=== PATIENT | female | born 1990 | race Caucasian/White ===

== ENCOUNTER 2021-03-11 15:31 | Emergency (ER) | payer OTHER, SELFPAY ==
[2021-03-11 15:53] VITALS: BP 131/77; PULSE 73; RESP 16; TEMP 37.1; O2SAT 100
[2021-03-11] MEDS: TETANUS,DIPHTHERIA,AC PERTUSSIS ADULT (0.5 ML) BOOSTRIX IM (16:09)
--- NOTE | 2021-03-11 16:14 | ED.ANIMALBIT ---
HPI - Animal Bite General Chief Complaint: Animal Bite Stated Complaint: Animal Bite Finger Lt Hand Time Seen by Provider: 03/11/21 15:59 Source: patient and RN notes reviewed Mode of arrival: ambulatory Limitations: no limitations History of Present Illness HPI narrative: Patient presents today complaining of a squirrel bite to her left second finger that was sustained at 830 this morning. 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 She cleaned the bite with peroxide directly afterwards and applied a dressing. States the injury stings , but denies any real pain. She denies numbness or tingling. Denies decreased range of motion. She is not up-to-date on her tetanus vaccine. MD complaint: animal bite Related Data Allergies Allergy/AdvReac Type Severity Reaction Status Date / Time tomato Allergy Unknown Unknown Verified 04/19/19 11:42 Review of Systems Review of Systems: CONSTITUTIONAL: Denies body aches, fever, chills, or sweats. EYES: Denies visual changes, redness, or discharge. ENT: Denies rhinorrhea, congestion, sore throat, or otalgia. CARDIOVASCULAR: Denies chest pain, palpitations, or edema. RESPIRATORY: Denies cough or dyspnea. GASTROINTESTINAL: Denies abdominal pain, nausea, vomiting, or diarrhea. GENITOURINARY: Denies dysuria or hematuria. SKIN: Denies rash, itching. + Animal bite MUSCULOSKELETAL: Denies back pain, joint pain, or myalgia. NEUROLOGIC: Denies headache, numbness, tingling, or weakness. PSYCH: Denies depression or anxiety. [facility] Past Medical History Medical History Asthma Hyperglycemia Surgical History Surgical History History of breast augmentation 12/2017 Family History Family History Mother Family history of chronic obstructive pulmonary disease Grandparent Heart disease Social History Social History Smoking status: Never smoker Second hand tobacco smoke exposure: No Alcohol intake: current Alcohol use details: 2 glasses of wine consumed occasionally Substance use: never Substance use type: does not use Comments At time of signature, I have reviewed and agree with nursing past medical, surgical, social and family history unless otherwise noted. Please see nursing chart for further information. There is no relevant family history pertinent to the presenting complaint Exam Narrative: GENERAL: Well-appearing, well-nourished, and in no acute distress. HEAD: Normocephalic, atraumatic. EYES: EOMI. No redness or drainage. Conjunctivae normal. ENT: Mucous membranes pink and moist. NECK: Normal AROM. CHEST: No respiratory distress. . EXTREMITIES: Left second finger: Distal phalanx: 3 mm x 2 mm area of superficial skin avulsion and adjacent very superficial linear skin abrasion that measures 0.5cm. Sensation intact. Capillary refill normal. Full range of motion. Dressed with Band-Aid SKIN: Warm, dry, no rash. Capillary refill normal. Normal skin turgor. NEURO: No focal deficits. Alert and oriented x3. Gait steady. PSYCH: Normal affect. No signs of depression or anxiety. Course Course Level of Care: Express Care Visit Vital Signs Vital signs: Vital Signs Temperature 98.7 F 03/11/21 15:53 Pulse Rate 73 03/11/21 15:53 Respiratory Rate 16 03/11/21 15:53 Blood Pressure 131/77 03/11/21 15:53 Pulse Oximetry 100 03/11/21 15:53 Temperature 98.7 F 03/11/21 15:53 Pulse Rate 73 03/11/21 15:53 Respiratory Rate 16 03/11/21 15:53 Blood Pressure 131/77 03/11/21 15:53 Pulse Oximetry 100 03/11/21 15:53 Reviewed. Pt has been instructed to follow up with her PCP regarding her elevated blood
== END 2021-03-11 16:23 | disposition home or self-care (01) ==
PROVIDERS: Emergency Provider Nurse Practitioner
DX: S61.251A Open bite of left index finger without damage to nail, initial encounter (principal); W53.21XA Bitten by squirrel, initial encounter; Z23 Encounter for immunization; J45.909 Unspecified asthma, uncomplicated
CPT/HCPCS: 90471; 90715; 99213; G0463